=== PATIENT | male | born 1995 | race Two or more races ===

== ENCOUNTER 2017-03-14 08:08 | Emergency (ER) | payer SELFPAY ==
[~2017-03-14] VITALS: Ht 177.8 cm; Wt 90.7 kg
[2017-03-14] MEDS ORDERED: CYCLOBENZAPRINE 10MG TABLET PO ONE (10:30)
[2017-03-14] MEDS ORDERED: KETOROLAC 60MG/2ML VIAL IM ONE (10:30)
[2017-03-14 10:34] VITALS: BP 110/65
== END 2017-03-14 10:36 | disposition home or self-care (01) ==
LOC: ER 08:29
DX: S09.90XA Unspecified injury of head, initial encounter (principal); V47.0XXA Car driver injured in collision with fixed or stationary object in nontraffic accident, initial encounter; Y93.89 Activity, other specified; Y92.410 Unspecified street and highway as the place of occurrence of the external cause; Y99.8 Other external cause status
CPT/HCPCS: 96372; 99283; J1885